=== PATIENT | female | born 1965 | race Caucasian/White ===

== ENCOUNTER 2020-05-08 02:59 | Observation (INO) | payer BC, OTHER ==
[~2020-05-08] VITALS: Ht 175.3 cm; Wt 68.0 kg
[~2020-05-08 02:59] MED LIST: ESTRACE0.5 MG PO; LOSARTAN-HCTZ1 EAC1 PO; MICROZIDE12.5 MG PO; ZESTRIL40 MG PO
[2020-05-08 04:19] LABS: HEMOGLOBIN 13.1 gm/dl (12.3-15.3); RED BLOOD COUNT 3.92 M/UL (4.00-5.10); WHITE BLOOD COUNT 6.5 K/UL (4.5-11.0)
[2020-05-08 04:34] LABS: BUN/CREATININE RATIO 19 (0-10)
[2020-05-08] MEDS ORDERED: BENICAR40 MG PO (13:36)
[2020-05-08] MEDS ORDERED: COREG 25MG TAB25 MG PO (13:36)
[2020-05-08] MEDS ORDERED: ASPIRIN EC81 MG PO (13:36)
[2020-05-08] MEDS ORDERED: HYDRALAZINE HCL50 MG PO (13:37)
[2020-05-08] MEDS ORDERED: KENALOG OINT 0.15 GM TOP (15:15)
[2020-05-08] MEDS ORDERED: CATAPRES0.1 MG PO (15:16)
[2020-05-09 03:11] LABS: HEMOGLOBIN 12.5 gm/dl (12.3-15.3); RED BLOOD COUNT 3.72 M/UL (4.00-5.10); WHITE BLOOD COUNT 7.2 K/UL (4.5-11.0)
[2020-05-09 03:33] LABS: BUN/CREATININE RATIO 15 (0-10)
[2020-05-09] MEDS ORDERED: PROTONIX40 MG PO (14:49)
== END 2020-05-09 16:45 | disposition home or self-care (01) ==
LOC: ER1 02:59 → ZEROF 06:01 → M/S 06:01
PROVIDERS: Emergency Medicine; Internal Medicine; ADMIT Internal Medicine
DX: K85.90 Acute pancreatitis without necrosis or infection, unspecified (principal); I10 Essential (primary) hypertension; E78.5 Hyperlipidemia, unspecified; N89.8 Other specified noninflammatory disorders of vagina; K76.89 Other specified diseases of liver; Z79.82 Long term (current) use of aspirin; Z20.822 Contact with and (suspected) exposure to COVID-19; Z88.0 Allergy status to penicillin; Z79.899 Other long term (current) drug therapy; Z90.49 Acquired absence of other specified parts of digestive tract; Z98.890 Other specified postprocedural states
CPT/HCPCS: 36415; 71045; 80053; 81001; 83605; 83690; 84478; 84484; 85025; 93005; 96374; 96375; 96376; 99285; C9113; G0378; J1650; J2270; J2405; J7030; Q9967; U0002